=== PATIENT | male | born 1985 | race Caucasian/White ===

== ENCOUNTER 2016-04-11 10:48 | Emergency (ER) | payer OTHER ==
[~2016-04-11] VITALS: Ht 172.7 cm; Wt 78.2 kg
[2016-04-11 10:51] VITALS: BP 113/67; PULSE 64; RESP 16; TEMP 98.8; O2SAT 100
[2016-04-11] MEDS ORDERED: LIDOCAINE HCL 1% 50 ML VIAL INFIL ONE (11:00)
--- NOTE | 2016-04-11 11:02 | PD ---
HPI Chief Complaint: Laceration/Skin Injury Time Seen by Provider: 10:56 Travel History International Travel<30 days: No Contact w/Intl Traveler<30days: No Traveled to known affect area: No History of Present Illness HPI This is a 30-year-old male who presents to the emergency department having cut his right hand with a kitchen knife when he was cutting fish. Patient sustained a laceration to palm. He denies any other injuries. He had a tetanus shot 3 years ago. He is otherwise healthy. [facility] Past Medical History Medical History: Denies Significant Hx Hx Anticoagulant Therapy: No Diabetes: No Social History Tobacco Use: No Allergies-Medications (Allergen,Severity, Reaction): Coded Allergies: No Known Allergies (Unverified , 04/11/16) Review of Systems General / Constitutional: No: Fever, Chills Cardiovascular: No: Chest Pain or Discomfort Physical Exam Narrative GENERAL: Well-appearing, no acute distress, nontoxic SKIN: 4 cm laceration along the thenar eminence with no neurovascular structures underlying HEAD: Atraumatic. Normocephalic. ENT: No nasal bleeding or discharge. Moist mucous membranes MUSCULOSKELETAL: No obvious deformities. No clubbing. No cyanosis. No edema. Vascular: Normal capillary refill of the thumb. NEUROLOGICAL: Awake and alert. No obvious cranial nerve deficits. Motor grossly within normal limits. Normal speech. Able to flex and extend at the thumb with normal sensation. PSYCHIATRIC: Appropriate mood and affect; insight and judgment normal. Data Data Last Documented VS Vital Signs Date Time Temp Pulse Resp B/P Pulse Ox O2 Delivery O2 Flow Rate FiO2 04/11/16 10:51 98.8 64 16 113/67 100 MDM Medical Decision Making Medical Screen Exam Complete: Yes Emergency Medical Condition: Yes Differential Diagnosis Laceration, tendon injury, vascular injury, nerve injury Narrative Course This is a 30-year-old male who presents to the emergency department having sustained a laceration to his right thenar eminence when he was cooking with a kitchen knife. He is up-to-date on his tetanus. Physician drilling assistant will repair the patient's wound with sutures. Subsequently I think he can be discharged home. Diagnosis Primary Impression: Hand laceration Qualified Code: S61.411A - Hand laceration, right, initial encounter Patient Instructions: General Instructions Additional Instructions: If you develop fevers, redness, swelling, or discharge from your wound return to the emergency room. Keep your wound dry for 24 hours. After that time, wash gently with warm soap and water. Do not use peroxide. Do not soak in baths or go swimming. Have your sutures removed in 7 days. Med/Other Pt SpecificInfo: No Change to Meds Disposition: 01 DISCHARGE HOME Condition: Stable Vianey Elizondo MD Apr 11, 2016 11:01
--- NOTE | 2016-04-11 11:11 | PD ---
Physical Exam Date Seen by Provider: Apr 11, 2016 Time Seen by Provider: 11:10 Narrative I was asked by Dr. Elizondo to perform a laceration repair on patient's right palm. Data Data Last Documented VS Vital Signs Date Time Temp Pulse Resp B/P Pulse Ox O2 Delivery O2 Flow Rate FiO2 04/11/16 10:51 98.8 64 16 113/67 100 Orders Lidocaine 1% Inj (50 Ml) (Xylocaine 1% I (04/11/16 11:00) [facility] Medical Record Reviewed: Yes Supervised Visit with MELIZA: No Differential Diagnosis right palmar laceration Narrative Course I was asked to repair laceration by Dr. Elizondo. Procedures Procedure Narrative LACERATION LOCATION: right palmar LENGTH: 4cm NUMBER OF STITCHES/VDIA: 8 REPAIR: The area of the laceration was prepped with Betadine and sterilely draped. The laceration was infiltrated with 1% lidocaine. The wound was copiously irrigated and explored without evidence of foreign body, tendon injury or neurovascular injury. The wound was closed using 4.0 ethilon. This was a single layer repair. A sterile dressing was applied. The patient was advised to keep the dressing clean and dry. Patient tolerated the procedure well. Advised to have sutures removed in 7-10 days. Diagnosis Primary Impression: Hand laceration Qualified Code: S61.411A - Hand laceration, right, initial encounter Patient Instructions: General Instructions Additional Instruction: If you develop fevers, redness, swelling, or discharge from your wound return to the emergency room. Keep your wound dry for 24 hours. After that time, wash gently with warm soap and water. Do not use peroxide. Do not soak in baths or go swimming. Have your sutures removed in 7 days. Scripts No Active Prescriptions or Reported Meds Disposition: 01 DISCHARGE HOME Condition: Stable Teetee Khan Apr 11, 2016 11:11
== END 2016-04-11 11:50 | disposition home or self-care (01) ==
LOC: PHEFT 10:48
DX: S61.411A Laceration without foreign body of right hand, initial encounter (principal); W26.0XXA Contact with knife, initial encounter; Y93.G3 Activity, cooking and baking; Y99.8 Other external cause status
CPT/HCPCS: 12002